=== PATIENT | male | born 1995 | race Caucasian/White ===

== ENCOUNTER 2017-05-15 06:26 | Emergency (ER) | payer OTHER, SELFPAY ==
[2017-05-15 06:28] VITALS: BP 142/88; PULSE 100; RESP 20; TEMP 36.7; O2SAT 98; BMI 38.0
--- NOTE | 2017-05-15 06:34 | EKG12_ITS ---
Test Reason : CP Blood Pressure : / mmHG Vent. Rate : 094 BPM Atrial Rate : 094 BPM P-R Int : 164 ms QRS Dur : 108 ms QT Int : 350 ms P-R-T Axes : 035 029 031 degrees QTc Int : 437 ms Normal sinus rhythm Normal ECG Confirmed by KARTHIK RIVERA ([id number]), editor managing director TAYLOR MEDINA ([id number] on 05/19/2017 1:09:48 PM Referred By: GOLDIE Confirmed By:KARTHIK RIVERA
[2017-05-15] MEDS: Aspirin 81 MG TAB.CHEW 324 MG PO (06:39)
--- NOTE | 2017-05-15 06:45 | RAD_ITS ---
STUDY: X-RAY CHEST REASON FOR EXAM: Male, 21 years old. Chest pain. TECHNIQUE: Frontal and lateral views of the chest. COMPARISON: None. FINDINGS: The lungs are clear and expanded. There is no demonstrated pleural abnormality. Normal size heart. Normal mediastinum and maisha. Normal visualized pulmonary arteries. Normal visualized aortic arch and descending thoracic aorta. There is exaggerated thoracic kyphosis with multilevel degenerative changes. Normal visualized ribs, clavicles, and shoulders. There is no demonstrated abnormality of the visualized soft tissue structures of the upper abdomen. RAD/Chest PA and Lateral IMPRESSION: No evidence for acute cardiopulmonary pathology. Electronically Signed: Quan Jett MD at 7:09 EST , Service support ,
[2017-05-15 06:52] LABS: Absolute Lymphocyte Count 2.68 X10^3/ul (0.83-4.51); Absolute Neutrophil Count 5.8 X10^3/uL (2.0-7.7); Basophil# 0.03 X10^3/uL; Basophil% 0.3 % (0-1); Eosinophil# 0.18 X10^3/uL; Eosinophils% 1.9 % (0-5); Hematocrit 47.3 % (40-54); Hemoglobin 15.7 g/dl (13.0-16.5); Lymphocyte # 2.68 X10^3/ul (4.0); Lymphocyte % 28.2 % (19-41); Mean Corp Hgb Conc 33.2 g/gl (32-36); Mean Corpuscular Hgb 28.6 pg (27.0-32.0); Mean Corpuscular Volume 86.2 fL (80-94); Mean Platelet Vol. 10.6 fl (6.2-12.0); Monocyte# 0.82 X10^3/uL; Monocyte% 8.6 % (0-10); Neutrophil # 5.78 X10^3/uL (2.7-7.7); Neutrophil % 60.8 % (47-70); Platelet Count 205 K/mm3 (150-450); RBC Distribution Width CV 12.9 % (11.6-14.6); RBC Distribution Width SD 40.5 fl (35.1-43.9); Red Blood Count 5.49 M/mm3 (4.6-6.2); White Blood Count 9.5 K/mm3 (4.4-11.0)
--- NOTE | 2017-05-15 06:57 | ED.VISSUMM ---
- ER Visit Summary Date of Service: 05/15/17 Chief Complaint: Chest pain History of Present Illness: The patient is a 21 M presenting for evaluation secondary chest pain. Patient states that he woke up this morning suddenly with left anterior chest pain. Patient states that it is a sharp type pain seems to be worse with taking a deep breath and with leaning forward. Does not appear to be any sort of relieving factors. Patient denies any history DVT or PE. Denies any personal or family history of cardiac arrhythmia or coronary artery disease. He denies any hypertension diabetes high cholesterol, he does use tobacco. He denies any recent travel or surgery. Denies any recent illnesses or heavy lifting. Physical Examination: Vital signs are within normal limits, patient is afebrile. General: Patient is well-nourished well-developed and in no acute distress. Head: Normocephalic, atraumatic Eyes: Pupils equal round and reactive bilaterally, extra occular motion intact bialterally ENT: Moist mucous membranes Neck: Supple, no lymphadenopathy, no JVD, no meningismus CVS: Heart regular rate and rhythm, 2 out of 6 systolic murmur noted over the left sternal border., rubs or gallops, radial pulses 2+ bilaterally Resp: Respirations nondistressed, lung sounds clear bilaterally Abdomen: Soft, nontender, nondistended, no palpable masses, normal bowel sounds Back: Nontender Extremities: Nontender, atraumatic, active full range of motion, no peripheral edema Skin: warm, no rashes, no petechia Neuro: Alert and oriented x 4, CN 2-12 intact, no lateralizing neurological defecits Psyc: Normal affect Test Results: EKG shows sinus rate of [address] segments normal T waves, no evidence of right ventricular strain or S1, q3, T3 morphology. CBC, chemistry, troponin, d-dimer, and ESR negative. Chest x-ray shows no acute cardiopulmonary pathology per radiology. Emergency Department Course and Treatment: Patient presented for evaluation secondary chest pain. Patient did endorse a pleuritic nature to this and initially had tachycardia on presentation so d-dimer was ordered which was found to be negative. Patient's cardiac workup was also found to be unremarkable, given the change in position associated with pain I ordered a ESR which was also negative indicating this likely is pericarditis. However, the patient does have chest pain in the setting of a new cardiac murmur. I discussed patient's case with Dr. Huang, patient will receive an echocardiogram in the emergency department. Patient will be signed out to the oncoming physician and likely will be discharged following his echocardiogram Disposition: Discharge pending echocardiogram Impression: 1. Chest pain 2. Heart murmur This note was generated with Jascha dictation software. It may contain incorrect words, spelling, and punctuation that were not noted in review of the chart prior to signing ED Disposition - Plan for ED Patient: Disposition: Home or Assisted Living Chief Complaint: Chest Pain Diagnosis: Chest pain, Heart murmur Instructions: ED Murmur All Types Ch Referrals: Wallace Huang MD [STAFF PHYSICIAN] -
[2017-05-15 07:02] LABS: D-Dimer Quantitative (DVT/PE) < 0.27 FEU/ug/m (0.27-0.49)
[2017-05-15 07:09] LABS: Anion Gap 8 (5-15); BUN 16 mg/dL (7-18); BUN/Creat Ratio 16.5 RATIO (10-20); Calcium,Total 8.9 mg/dL (8.5-10.1); Chloride 104 mmol/L (98-107); Creatinine, Serum 0.97 mg/dL (0.70-1.30); EST Glomerular Filtration Rate 103 mL/min (>60); Est Glom Filt Rate - Afr Amer 125 mL/min (>60); Glucose 97 mg/dL (74-106); Potassium 3.8 mmol/L (3.5-5.1); Sodium Level 139 mmol/L (136-145)
[2017-05-15 07:10] LABS: POSITIVE COUNT NO; POSITIVE DIFFERENTIAL NO; POSITIVE MORPHOLOGY NO
[2017-05-15 07:11] LABS: Erythrocyte Sedimentation Rate 16 mm/hr (0-15)
--- NOTE | 2017-05-15 07:22 | ECHOD_ITS ---
Reason For Study: Murmur, chest pain Procedure This was a 2D Doppler, Color Flow transthoracic echocardiogram. Exam performed portable in ED. Left Ventricle Normal size and thickness. The estimated ejection fraction is 65 %. Normal diastology for age. No regional wall motion abnormalities noted. Right Ventricle Normal size and thickness. Normal systolic function. Atria Normal left atrium. Normal right atrium. Normal atrial septum. Mitral Valve The mitral valve is structurally normal. No prolapse or stenosis seen. Tricuspid Valve Normal tricuspid valve. Unable to estimate RV systolic pressure/pulmonary artery pressure due to technically difficult study. 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 Functional bicuspid aortic valve. Pulmonic Valve Normal pulmonic valve. Great Vessels Normal aortic root. Normal arch. Normal inferior vena cava. Inferior vena cava collapse with sniff. Pericardium/Pleural No pericardial effusion. MMode/2D Measurements & Calculations LVIDd: 4.5 cm IVSd: 1.0 cm LVOT diam: 2.6 cm LVIDs: 3.2 cm LVPWd: 1.0 cm LVOT area: 5.2 cm2 RVDd: 3.7 cm FS: 29.0 % Ao root diam: 3.4 cm LAV(MOD-bp): 51.9 ml LA A4 area: 18.4 cm2 LA dimension: 4.4 cm LAV(MOD-bp) Indexed: 21.7 ml/m2 LAV(MOD-sp2): 47.8 ml LAV(MOD-sp4): 44.2 ml RA A4 area: 18.8 cm2 Doppler Measurements & Calculations MV E max kyrie: 112.6 cm/sec Lat Peak E' Kyrie: 21.8 cm/sec Med Peak E' Kyrie: 12.8 cm/sec MV A max kyrie: 62.1 cm/sec E/E' lat: 5.2 E/E' med: 8.8 MV E/A: 1.8 Ao V2 max: 177.0 cm/sec LV V1 max: 120.8 cm/sec SV(LVOT): 143.2 ml Ao max P.5 mmHg LV V1 max P.8 mmHg Ao V2 mean: 122.3 cm/sec LV V1 mean P.1 mmHg Ao mean P.7 mmHg LV V1 mean: 83.7 cm/sec Ao V2 VTI: 35.9 cm LV V1 VTI: 27.4 cm MARICHUY(I,D): 4.0 cm2 MARICHUY(V,D): 3.6 cm2 PA V2 max: 133.9 cm/sec Interpretation Summary The estimated ejection fraction is 65 %. Normal diastology for age. Unable to estimate RV systolic pressure/pulmonary artery pressure due to technically difficult study. Fusion of left and right coronary cusps with no evidence of aortic dilatation or aortic stenosis. Functional bicuspid aortic valve. There is no comparison study available. Ordering Physician: Kumar Cook Referring Physician: No PCP Performed By: Sherlyn Arzate RDCS
[2017-05-15 07:24] VITALS: BP 117/73; PULSE 78; RESP 16; O2SAT 97
[2017-05-15 08:10] VITALS: BP 91/68; PULSE 67; RESP 16; O2SAT 96
[2017-05-15 09:26] VITALS: BP 112/81; PULSE 87; RESP 17; O2SAT 98
== END 2017-05-15 09:27 | disposition home or self-care (01) ==
PROVIDERS: Emergency Provider Emergency Medicine
DX: R07.9 Chest pain, unspecified (principal); Q23.1 Congenital insufficiency of aortic valve; R01.1 Cardiac murmur, unspecified; Z72.0 Tobacco use
CPT/HCPCS: 71046; 80048; 84484; 85025; 85379; 85652; 93005; 93306; 99285; A4216

== ENCOUNTER → 2017-06-10 06:35 | Outpatient (CLI) | payer OTHER, SELFPAY ==
--- NOTE | 2017-06-10 06:38 | CT_ITS ---
STUDY: CT CHEST WITH CONTRAST REASON FOR EXAM: Male, 21 years old. Aneurysm found on ultrasound RADIATION DOSAGE (If Supplied By Facility): CTDIvol = ( 15.90 ) mGy, DLP = ( 820.96 ) mGycm TECHNIQUE: Transaxial imaging was performed following intravenous administration of 100ml ml of Isovue 300 contrast material. Individualized dose optimization techniques were used for this CT. COMPARISON: Chest x-ray 05/15/2017. FINDINGS: The lungs are normal. There is no demonstrated pleural abnormality. Normal heart and pericardium. Evaluation of the mediastinum including the great vessels is limited by prominent pulsation artifact. However, no definite aneurysm or dissection is seen. Greatest cross-sectional dimension of the ascending aorta is approximately 3.5 cm which does not qualify as aneurysm. Normal mediastinum. Normal hilar regions. Normal enhanced pulmonary arteries. Normal aorta arch and descending thoracic aorta. Normal osseous structures. There is no demonstrated abnormality of the visualized upper abdomen. CT/Chest WITH Contrast IMPRESSION: No chest disease is seen. Electronically Signed: Tylor Restrepo MD at 15:55 EDT , Service support ,
[2017-06-10 08:51] LABS: AST(SGOT) 13 U/L (15-37); Alanine Aminotransfer ALT/SGPT 32 U/L (16-61); Albumin, Serum 3.7 g/dL (3.2-5.0); Alkaline Phosphatase 109 U/L (45-117); Bilirubin, Direct 0.12 mg/dL (0.00-0.30); Cholesterol 170 mg/dL (200); Globulin 3.8 g/dL (2.2-4.2); High Density Lipoprotein 37 mg/dL; Protein, Total 7.5 g/dL (6.4-8.2); Triglycerides 124 mg/dL; Very Low Density Lipoprotein 25 mg/dL (5-40)
== END ==
PROVIDERS: Visit Provider Internal Medicine Cardiovascular Disease
DX: Q23.1 Congenital insufficiency of aortic valve (principal); R07.9 Chest pain, unspecified; E66.9 Obesity, unspecified
CPT/HCPCS: 36415; 71260; 80061; 80076; Q9967

== ENCOUNTER → 2024-03-04 | Outpatient (CLI) | payer OTHER, SELFPAY ==
[2024-03-04 10:06] LABS: Absolute Lymphocyte Count 2.32 X10^3/uL (0.83-4.51); Absolute Neutrophil Count 4.3 X10^3/uL (2.0-7.7); Basophil# 0.06 X10^3/uL; Basophil% 0.8 % (0-1); Eosinophil# 0.17 X10^3/uL; Eosinophils% 2.3 % (0-5); Hematocrit 46.2 % (40-54); Hemoglobin 14.9 g/dL (13.0-16.5); Lymphocyte # 2.32 X10^3/ul (0.83-4.51); Lymphocyte % 30.8 % (19-41); Mean Corp Hgb Conc 32.3 g/dL (32-36); Mean Corpuscular Hgb 27.5 pg (27.0-32.0); Mean Corpuscular Volume 85.2 fL (80-94); Mean Platelet Vol. 10.6 fl (6.2-12.0); Monocyte# 0.65 X10^3/uL; Monocyte% 8.6 % (0-10); NRBC Flagged by Analyzer 0 % (0-5); Neutrophil % 57.1 % (47-70); Platelet Count 256 K/mm3 (150-450); RBC Distribution Width CV 12.7 % (11.6-14.6); RBC Distribution Width SD 39.4 fl (35.1-43.9); Red Blood Count 5.42 M/mm3 (4.6-6.2); White Blood Count 7.5 K/mm3 (4.4-11.0)
[2024-03-04 12:36] LABS: ALB/GLOB Ratio 0.9 RATIO (0.9-2.4); AST(SGOT) 27 U/L (15-37); Alanine Aminotransfer ALT/SGPT 77 U/L (16-61); Albumin, Serum 3.8 g/dL (3.2-5.0); Alkaline Phosphatase 102 U/L (45-117); Anion Gap 5 (5-15); BUN 12 mg/dL (7-18); BUN/Creat Ratio 12.5 RATIO (10-20); Calcium,Total 9.7 mg/dL (8.5-10.1); Chloride 106 mmol/L (98-107); Cholesterol 217 mg/dL (200); Creatinine, Serum 0.96 mg/dL (0.70-1.30); EST Glomerular Filtration Rate 99 mL/min (>60); Est Glom Filt Rate - Afr Amer 120 mL/min (>60); Globulin 4.1 g/dL (2.2-4.2); Glucose 80 mg/dL (74-106); High Density Lipoprotein 40 mg/dL; Protein, Total 7.9 g/dL (6.4-8.2); Sodium Level 140 mmol/L (136-145); Triglycerides 133 mg/dL; Uric Acid 7.8 mg/dL (3.5-7.2); Very Low Density Lipoprotein 27 mg/dL (5-40)
== END | disposition home or self-care (01) ==
LOC: MTLAB 09:08
PROVIDERS: PCP Nurse Practitioner Family; Referring Provider Nurse Practitioner Family; Visit Provider Nurse Practitioner Family
DX: Z00.01 Encounter for general adult medical examination with abnormal findings (principal); M10.9 Gout, unspecified
CPT/HCPCS: 36415; 80053; 80061; 84550; 85025